=== PATIENT | female | born 1945 | race Caucasian/White ===

== ENCOUNTER 2023-11-22 15:48 | Outpatient (CLI) | payer MEDICARE, OTHER | END 2023-11-22 15:49 | disposition home or self-care (01) | LOC: CSHMRI 15:48 | PROVIDERS: ATTEND Orthopaedic Surgery | DX: M48.061 Spinal stenosis, lumbar region without neurogenic claudication (principal); M47.816 Spondylosis without myelopathy or radiculopathy, lumbar region; N83.9 Noninflammatory disorder of ovary, fallopian tube and broad ligament, unspecified | CPT/HCPCS: 72148 ==